=== PATIENT | female | born 1945 | race Caucasian/White ===

== ENCOUNTER 2016-03-29 11:35 | Inpatient (IN) | payer OTHER, MEDICARE ==
[~2016-03-29] VITALS: Ht 160 cm; Wt 89.0 kg
--- NOTE | 2016-03-29 12:55 | DIAGNOSTIC IMAGING REPORT ---
PROCEDURE: XR CHEST 1 VIEW INDICATION: SHORTNESS OF BREATH TECHNIQUE: Portable AP view 12:20 p.m. COMPARISON: Chest 12/14/2014 and 05/15/2009 FINDINGS: Small peripheral infiltrate right mid lung field. Heart and mediastinum are normal. Thorax is normal. IMPRESSION: 1. Small peripheral infiltrate right mid lung field.
--- NOTE | 2016-03-29 14:50 | ED ORDER SUMMARY ---
..... Patient: SUZAN CONRAD OrderSheet [facility] VisitID: [id number] [place] [address] 70y, F Registration Date/Time: 03/29/2016 ORDER SHEET Weight: 79.3 kg (stated) Allergies: No Known Drug Allergy GENERAL ORDERS: Chest 1V Urgent (12:03/29/2016 Papito VILLA) (Ack 12:12 LMuller) (12:24 KWilliams R.N.) Snuff Grinder (Continuous) (12:03/29/2016 Papito VILLA) (Ack 12:12 LMuller) (12:14 LMuller) CBC w Diff Urgent (12:03/29/2016 Papito VILLA) (Ack 12:12 LMuller) (12:24 KWilliams R.N.) CMP Urgent (12:03/29/2016 Papito VILLA) (Ack 12:12 LMuller) (12:24 KWilliams R.N.) BNP Urgent (12:03/29/2016 Papito VILLA) (Ack 12:12 LMuller) (12:24 KWilliams R.N.) Oxygen (2 L/min) (NC) (12:03/29/2016 Papito VILLA) (Ack 12:12 LMuller) (12:14 LMuller) Pulse oximeter (12:03/29/2016 Papito VILLA) (Ack 12:12 LMuller) (12:14 LMuller) EKG - ER Stat (12:03/29/2016 Papito VILLA) (Ack 12:12 LMuller) (12:14 LMuller) Rapid Influenza Screen (Nasal Pharyngeal) (swab) Urgent (14:42 03/29/2016 Papito VILLA) (Ack 14:47 NHouse ER Tech1) (14:49 NHouse ER Tech1) ABG (G) Urgent (14:42 03/29/2016 Papito VILLA) (Ack 14:47 NHouse ER Tech1) (15:30 SBalde R.N.) MEDICATION ORDERS: DuoNeb Neb Tx 1 unit dose (NOW) (14:42 03/29/2016 Papito VILLA) (Ack 14:49 NHouse ER Tech1) (16:05 Rosa) Zithromax PO 500 mg (NOW) (14:43 03/29/2016 Papito VILLA) (15:55 Cammy Reese.Sarah) IV FLUIDS: IV Saline Lock (12:11 03/29/2016 Papito VILLA) (12:24 Gali R.N.) Solu-MEDROL IV 125 mg (NOW) (12:21 03/29/2016 Papito VILLA) (12:35 Gali R.N.) Magnesium Sulfate IV 2 gm/50mL (HIGH ALERT MEDICATION, NOW) (12:21 03/29/2016 Papito VILLA) (12:37 Gali R.N.) Rocephin IV 2 gm/50mL (NOW) (14:43 03/29/2016 Papito VILLA) (15:54 Cammy Reese.Lito.) ORDER SHEET NOTES: [Electronically signed by Gwen Yancey MD (09:22 03/30/2016)] [Electronically signed by Ritika Trent R.N. (07:33 04/04/2016)] [Electronically locked/signed by Ritika Trent R.N. (07:33 04/04/2016)]
--- NOTE | 2016-03-29 14:50 | ED CLINICAL REPORT ---
Clinical Report - Physicians/Mid Levels [facility] [address] [place] [address] 03/29/2016 11:39 Patient: SUZAN CONRAD Time Seen: 12:07. Arrived- By private vehicle. Historian- patient. HISTORY OF PRESENT ILLNESS Chief Complaint: DYSPNEA and HISTORY OF CHRONIC OBSTRUCTIVE PULMONARY DISEASE. This started about 1 week ago, but worse since last night and is still present. The dyspnea is severe. The dyspnea is worsened by exertion and cough (nothing improves). The patient has had a cough, dyspnea on exertion and anxiety. No sputum production, sweating episodes, wheezing or chills. No chest pain or discomfort, calf pain, foot swelling or dizziness. No tingling, numbness or palpitations. The patient has had fever (several days ago - gone). (PT normally uses O2 at night, but has been having to use 2-3 L during the day, too, since the illness began. Pt has used multiple nebs at home, and states they are not working.). Similar symptoms previously: Many times. ( No h/o intubation or BiPAP.). Recent medical care: Not recently seen/assessed. REVIEW OF SYSTEMS The patient has had a nasal discharge but not had weight loss. No muscle aches, eye irritation, sore throat, sinus drainage or nausea. No vomiting, diarrhea, black stools, bloody stools or headache. No fainting episodes, blurred vision, difficulty with urination, skin rash or enlarged lymph nodes. No joint pain. The patient has had abdominal pain (Pt states muscles are sore from breathing heavily.). All systems otherwise negative, except as recorded above. PAST HISTORY Problems: Anxiety Reaction. Spinal Fracture. Pulmonary Embolism. COPD - Chronic Obstructive Pulmonary Disease. Additional Surgeries: Rotator Cuff Surgery. Medications: Advil Allergy & Congestion Oral. Hydrochlorothiazide Oral. Ranitidine HCl Oral. Citalopram Hydrobromide Oral. Zolpidem Tartrate Oral. ALPRAZolam Oral. Tramadol HCL Oral. PredniSONE Oral. Advair Diskus Inhalation. Albuterol Sulfate Inhalation. Allergies: No Known Drug Allergy. SOCIAL HISTORY Former smoker, end date 1996. Occasional alcohol use. No drug use. ADDITIONAL NOTES The nursing notes have been reviewed. PHYSICAL EXAM Vital Signs: 03/29/2016 11:41 BP: 126/66. HR: 103. RR: 30. O2 saturation: 75%. Temp: 99 F. Have been reviewed. Appearance: Alert. Patient in moderate distress. Distress appears respiratory. (Pt is pale, drowsy, and sits with her eyes closed, breathing through pursed lips. She does arouse easily to answer questions.). Eyes: Pupils equal, round and reactive to light. Eyes normal inspection. ENT: Nose normal. Neck: Normal inspection. CVS: Tachycardia. Heart sounds normal. Pulses normal. Respiratory: Moderate respiratory distress with accessory muscle use, anxiety, tachypnea and decreased mental status. Speaks short phrases. Fatigue. Moderately prolonged expirations. Moderately decreased air movement diffusely over both lungs. Wheezing present. No rales. Abdomen: Soft. Mild tenderness (Bilateral lateral aspects.). Back: Normal inspection. No CVA tenderness. Skin: Skin warm and dry. No rash. Normal skin turgor. Pale. Extremities: Extremities exhibit normal ROM. No lower extremity edema. Neuro: No motor deficit. No sensory deficit. (Pt answers questions appropriately.). LABS, X-RAYS, AND EKG EKG: EKG time: (1157). Rate: 100. Tachycardia. Normal P waves. Normal MARIA D. Normal QRS complex. Normal axis. Normal QT and QTc. Non-specific ST segment / T wave abnormalities. Prior EKG unavailable. The study has been interpreted contemporaneously by me. The study has been independently viewed by me. The EKG appears to be a good tracing. I agree with and confirm the computer reading of the EKG. Rhythm Strip #1: Time: (1201). Rate= 107. Sinus tachycardia. Regular rhythm. Narrow QRS complexes. No ectopy. Conduction normal. Normal ST segments and T waves. The study was interpreted by me. Chest X-ray: Small infiltrate in the right middle lobe. Consistent with pneumonia. Normal heart size. Mediastinum normal. Great vessels normal. Soft tissues normal. No fracture. No bony lesion present. Views: AP (portable). Technique: good. The X-rays were independently viewed by me, interpreted by the radiologist and contemporaneously by me and discussed with the radiologist. Prior films were not available for comparison. Laboratory Tests: CBC w Diff: (LALY: 03/29/2016 11:55) ( MsgRcvd 03/29/2016 12:20) Final results Test Result Flag Units (Reference) WHITE BLOOD COUNT 13.7 H K/uL (4.5-11.5) RED BLOOD COUNT 4.49 M/uL (4.00-5.20) HEMOGLOBIN 13.2 gm/dL (12.0-16.0) HEMATOCRIT 40.1 % (36.0-46.0) MEAN CELL VOLUME 89 fL (80-100) MEAN CORPUSCULAR HGB 30 pg (26-34) MEAN CORPUSCULAR HGB CONC 33 g/dL (31-37) RED CELL DISTRIBUTION WIDTH 13.8 % (11.6-14.8) PLATELET COUNT 301 K/uL (150-400) NEUTROPHIL % 77.7 H % (50-75) LYMPH % 10.2 L % (25-40) MONO % 11.0 % (3-14) EOSINOPHIL % 0.8 % (0-4) BASOPHIL % 0.3 % (0-2) BNP: (LALY: 03/29/2016 11:55) ( MsgRcvd 03/29/2016 12:36) Final results Test Result Flag Units (Reference) B-TYPE NATRIURETIC PEPTIDE 51.4 pg/ml (5-100) CMP: (LALY: 03/29/2016 11:55) ( MsgRcvd 03/29/2016 12:31) Final results Test Result Flag Units (Reference) GLUCOSE 116 H mg/dL (70-110) BUN 17 mg/dL (7-18) CREATININE 0.8 mg/dL (0.6-1.3) Estimated GFR >60 mL/min Estimated GFR- >60 mL/min Note: Persistent reduction over 3 months in eGFR<60 mL/min/1.73 m2 defines CKD. Patients with eGFR values>=60 mL/min/1.73 m2 may also have CKD if evidence ofpersistent proteinuria. Additional information may be foundat www.kidney.org. SODIUM 140 mmol/L (136-145) POTASSIUM 3.9 mmol/L (3.5-5.1) CHLORIDE 99 mmol/L (98-107) CARBON DIOXIDE 33 H mmol/L (21-32) CALCIUM 8.7 mg/dL (8.5-10.1) TOTAL PROTEIN 6.8 g/dL (6.4-8.2) ALBUMIN 3.0 L g/dL (3.3-5.0) BILIRUBIN, TOTAL 1.4 H mg/dL (0.0-1.0) ALKALINE PHOSPHATASE 60 U/L (46-116) AST (SGOT) 27 U/L (15-37) ALT (SGPT) 40 U/L (12-78) ABG: (LALY: 03/29/2016 14:42) ( MsgRcvd 03/29/2016 15:10) Final results Test Result Flag Units (Reference) FIO2 35 % (20-101) ABG MODE OF DELIVERY NC MODIFIED BETHANY TEST POSITIVE? YES LITERS PER MIN. 4 L/MIN (0-20) ABG TEMPERATURE 37 C ARTERIAL BLOOD GAS SITE RR ARTERIAL BLOOD GAS pH 7.34 L (7.35-7.45) ABG PCO2 61.6 *H mmHg (35-45) ABG PO2 80.4 H mmHg (60.0-80.0) ABG BASE EXCESS 6.7 H mmol/L (-6.0--6.0) ABG HCO3 33.4 *H mmol/L (20.0-26.0) ABG TCO2 35.3 *H mmol/L (24.0-30.0) ABG JjCqV5x 101.6 H mmHg (7.0-14.0) *NOTE: Normal rangeis based on aFIO2 of 21% ABG SAT O2 96.5 % (95.1-100.0) ABG TOTAL HEMOGLOBIN 12.9 g/dL (12.0-16.0) ABG O2 HEMOGLOBIN 94.8 L % (95.0-100.0) ABG CARBOXYHEMOGLOBIN 1.9 H % (0.5-1.5) ABG METHEMOGLOBIN -0.1 L % (0.4-1.5) ABG RHEMOGLOBIN 3.4 % Rapid Influenza Screen: (LALY: 03/29/2016 14:30) ( MsgRcvd 03/29/2016 15:02) Final results SPECIMEN DESCRIPTION: SWAB Test Result Flag Units (Reference) RAPID INFLUENZA SCREEN DATE: 03/29/16 INFLUENZA A: NEGATIVE SCREEN FOR INFLUENZA A INFLUENZA B: NEGATIVE SCREEN FOR INFLUENZA B . Pulse Oximetry: 03/29/2016 11:41 O2 saturation: 75%. (FIO2 - room air). Interpretation: normal. PROGRESS AND PROCEDURES Course of Care: PT was evaluated immediately upon arrival in the ED, and was placed on supplemental O2, due to her marked hypoxia. She was also immediately given a duoneb and albuterol neb. Minor improvement was noted, but pt was still in significant respiratory distress. She was also given Solumedrol and magnesium IV, and did begin to slowly improve after this. Influenza testing was negative. CXR showed a small RML infiltrate for which pt was treated with Rocephin and Zithromax. ABG showed hypercarbia without significant acidosis. PT was still found to have labored respirations after a 3rd neb, and family did not feel she was back to baseline. Pt was in agreement with the need for admission. Critical care performed (60 minutes). Time includes: direct patient care, patient reassessment, coordination of patient care, interpretation of data (laboratory data, pulse oximetry, arterial blood gases, chest xrays and cardiac output measurements), review of patient's medical records, medical consultation, family consultation regarding treatment decisions and documentation of patient care. The patient required critical care due to the acute impairment of vital organ systems (respiratory) and a high probability of imminent and life threatening deterioration. Multiple emergent and urgent interventions were required to prevent sudden life threatening deterioration. Discussed case with hospitalist, (Khris). Reviewed test results. Agreed upon treatment plan and decision to admit. Health care provider will see patient in hospital. Old medical records reviewed. Disposition: Admitted to Acute Care. Condition: serious. CLINICAL IMPRESSION Acute exacerbation of COPD. Bacterial pneumonia with hypoxemia. Vital signs recorded and reviewed; empiric antibiotics given in the ED. No respiratory failure or sepsis. (Electronically signed by Gwen Yancey MD 03/30/2016 9:22)
--- NOTE | 2016-03-29 14:50 | ED NURSING NOTES ---
Clinical Report - Nurses [facility] [address] [place] [address] 03/29/2016 11:39 Patient: SUZAN CONRAD TRIAGE Triage time 11:37. Acuity: LEVEL 2. Chief Complaint: SHORTNESS OF BREATH and DIFFICULTY BREATHING. 11:49 03/29/16. SEPSIS SCREEN: Sepsis Screen. Infection suspected/documented. Heart rate greater than 90 and respiratory rate greater than 20. Temperature not greater than 38.3 degrees C (101 degrees F). --11:49 Sandra Acevedo R.N. 11:41 03/29/16. BP: 126/66. HR: 103. RR: 30. O2 saturation: 75% on nasal cannula at 2 liters/minute. O2 started via non-rebreather at 15 liters/minute. Temp: 99 F (oral). Pain level now 8/10. Additional comments: started on NRB at 15 liters. --11:49 Sandra Acevedo R.N. Weight: 79.3 kg stated. Height/Length: 63 inches Per Patient. BMI: 31. --11:44 Sandra Acevedo R.N. Medications Albuterol Sulfate Inhalation. --11:46 Sandra Acevedo R.N. Advair Diskus Inhalation. --11:46 Sandra Acevedo R.N. PredniSONE Oral. --11:47 Sandra Acevedo R.N. Tramadol HCL Oral. --11:48 Sandra Acevedo R.N. ALPRAZolam Oral. --11:48 Sandra Acevedo R.N. Zolpidem Tartrate Oral. --11:48 Sandra Acevedo R.N. Citalopram Hydrobromide Oral. --11:48 Sandra Acevedo R.N. Ranitidine HCl Oral. --11:48 Sandra Acevedo R.N. Hydrochlorothiazide Oral. --11:48 Sandra Acevedo R.N. Advil Allergy & Congestion Oral. --11:48 Sandra Acevedo R.N. Allergies No Known Drug Allergy. --11:47 Sandra Acevedo R.N. History Primary physician (LALY). ( SOB x2 days, states cough became productive today with yellow/cedillo sputum. Regularly on home oxygen at night only, states she has been wearing 2-3 liters in the daytime as well for the past couple days.). Onset. (2 days ago). Treatment CUSTOMER EXPERIENCE STRATEGIST: None. SOCIAL HX: Former smoker, end date 1996. Occasional alcohol use. No drug use. FALL RISK ASSESSMENT: Fall risk assessment completed. No fall risk identified. NUTRITIONAL RISK ASSESSMENT: The nutritional risk assessment revealed no deficiencies. FUNCTIONAL ASSESSMENT: Functional assessment: no impairments noted. LEARNING NEEDS ASSESSMENT: The learning needs assessment revealed no barriers. SKIN INTEGRITY ASSESSMENT: Skin integrity risk assessment completed. No skin integrity risk identified. --11:49 Sandra Acevedo R.N. PROBLEMS: Anxiety Reaction. Chest Pain. Spinal Fracture. Pulmonary Embolism. COPD - Chronic Obstructive Pulmonary Disease. --11:47 Sandra Acevedo R.N. ADDITIONAL SURGERIES: Rotator Cuff Surgery. --11:47 Sandra Acevedo R.N. Interventions ID band on patient. To treatment room. --11:49 Sandra Acevedo R.N. PHYSICAL ASSESSMENT To room via wheelchair. GENERAL / NEURO / PSYCH: Alert. Oriented X 4. Appears anxious. HEENT: Mucous membranes are pink. RESPIRATORY: Moderate respiratory distress. The patient can speak a few words at a time. ( RT to bedside at triage). CVS: Capillary refill less than 2 seconds. GI / : Abdomen soft and nontender. SKIN: Skin is warm and dry. Normal skin turgor. --12:04 Sandra Acevedo R.N. NURSING PROGRESS NOTES 11:49 03/29/16. --11:49 Sandra Acevedo R.N. 11:49 03/29/16. O2 saturation: 100% on non-rebreather at 15 liters/minute. --11:49 Sandra Acevedo R.N. 11:53 03/29/2016 Site #1 started via IV in the right antecubital space with an 18g angiocath, with aseptic technique and good blood return; one attempt. Blood drawn: rainbow set. Labeled in the presence of the patient and sent to the lab. Saline lock flushed with 10 mL saline. --12:03 Sandra Acevedo R.N. EKG time: (1157). EKG was performed by a tech. --12:04 Sandra Acevedo R.N. 12:30 03/29/2016 SOLU-MEDROL (MethylPREDNISolone Sodium Succ) IVP 125 mg given over 2 minute(s) via site #1. Allergies verified and confirmed 5 rights. IV patency established. IV site checked: no pain, redness, or swelling. IV flushed thoroughly pre- and post-medication administration. IVP given by RN. --12:35 Sandra Acevedo R.N. 12:32 03/29/2016 Magnesium Sulfate (Magnesium Sulfate in D5W) IVP 2 gm given over 2 hour(s) via site #1. Allergies verified and confirmed 5 rights. IV patency established. IV site checked: no pain, redness, or swelling. IV flushed thoroughly pre- and post-medication administration. IVP given by RN (25ml/hour). --12:37 Sandra Acevedo R.N. 12:38 03/29/16. BP: 139/71. HR: 100. RR: 28. O2 saturation: 97% on nasal cannula at 4 liters/minute. --12:38 Sandra Acevedo R.N. 12:47 03/29/16. BP: 129/54. HR: 106. RR: 26. O2 saturation: 95% on nasal cannula at 4 liters/minute. --12:48 Sandra Acevedo R.N. Cardiac rhythm: sinus tachycardia. --12:48 Sandra Acevedo R.N. 13:17 03/29/16. Reassessment after medication administered. She reports no complaints, she is calm and resting quietly and she has had no adverse reaction. Overall patient status is improved- she states feels better. --13:17 Sandra Acevedo R.N. Care transferred and report given (NAVIN Yost). --13:36 Ritika Trent R.N. 13:41 03/29/16. Care transferred and report given (DUSTIN Yost). --13:41 Sandar Acevedo R.N. 14:18 03/29/2016 Magnesium Sulfate IVP Response: no adverse reaction (infusion complete, 50 ml total.). --14:18 Ritika Trent R.N. Patient ID band checked. Flu swab obtained by RN via nasal swab. Labeled in the presence of the patient and sent to lab. --14:45 Ritika Trent R.N. 14:56 03/29/16. BP: 136/60. HR: 90. RR: 20. O2 saturation: 95%. Temp: 97.9 F. --14:57 Damaris Hong, ER Tech1 ( Most recent vitals taken while patient on oxygen 4 LPM nasal cannula). --14:58 Damaris Hong, ER Tech1 15:20 03/29/2016 Started 2 gm of Rocephin (CefTRIAXone Sodium) IVPB in bag #1 50 mL; at 100 mL/hr over 30 minute(s) via site #1; IV patency established. IV site checked: no pain, redness, or swelling. IV flushed thoroughly pre- and post-medication administration. Completed per protocol. --15:54 Ritika Trent R.N. 15:55 03/29/16. BP: 126/59. HR: 92. RR: 20. O2 saturation: 90%. Pain level now 0/10. --15:56 Ritika Trent R.N. 15:40 03/29/2016 Duoneb (Ipratropium-Albuterol) Neb TX Nebulizer 1 unit dose given. Given by the respiratory therapist. Allergies verified and confirmed 5 rights. --16:05 Aristides Dimas 15:55 03/29/2016 Zithromax PO 500 mg given. Allergies verified and confirmed 5 rights. --15:55 Ritika Trent R.N. ( Family assisting pt to the bathroom.). --16:08 Ritika Trent R.N. Assisted patient to bedside commode. --16:15 Sandra Acevedo R.N. DISPOSITION / DISCHARGE Admitted to Acute Care. Report was given to a nurse. Report included patient's care, treatment, medications, reviewed medication reconcilliation, and condition (including any recent changes or anticipated changes). All questions were answered. Report was acknowledged. (NAVIN Sandoval). Patient's personal items include, with pt. --16:23 Ritika Trent R.N. ( pt is on 3 liters at this time.). --16:27 Ritika Trent R.N. 16:27 03/29/16. BP: 126/59. HR: 90. RR: 20. O2 saturation: 90%. Pain level now 0/10. --16:27 Ritika Trent R.N. Locked/Released at 04/04/2016 7:33 by Ritika Trent R.N.
--- NOTE | 2016-03-29 14:50 | ED ORDER SUMMARY ---
..... Patient: SUZAN CONRAD OrderSheet [facility] VisitID: [id number] [place] [address] 70y, F Registration Date/Time: 03/29/2016 ORDER SHEET Weight: 79.3 kg (stated) Allergies: No Known Drug Allergy GENERAL ORDERS: Chest 1V Urgent (12:03/29/2016 Papito VILLA) (Ack 12:12 LMuller) (12:24 KWilliams R.N.) Web Operations Lead (Continuous) (12:03/29/2016 Papito VILLA) (Ack 12:12 LMuller) (12:14 LMuller) CBC w Diff Urgent (12:03/29/2016 Papito VILLA) (Ack 12:12 LMuller) (12:24 KWilliams R.N.) CMP Urgent (12:03/29/2016 Papito VILLA) (Ack 12:12 LMuller) (12:24 KWilliams R.N.) BNP Urgent (12:03/29/2016 Papito VILLA) (Ack 12:12 LMuller) (12:24 KWilliams R.N.) Oxygen (2 L/min) (NC) (12:03/29/2016 Papito VILLA) (Ack 12:12 LMuller) (12:14 LMuller) Pulse oximeter (12:03/29/2016 Papito VILLA) (Ack 12:12 LMuller) (12:14 LMuller) EKG - ER Stat (12:03/29/2016 Papito VILLA) (Ack 12:12 LMuller) (12:14 LMuller) Rapid Influenza Screen (Nasal Pharyngeal) (swab) Urgent (14:42 03/29/2016 Papito VILLA) (Ack 14:47 NHouse ER Tech1) (14:49 NHouse ER Tech1) ABG (G) Urgent (14:42 03/29/2016 Papito VILLA) (Ack 14:47 NHouse ER Tech1) (15:30 SBalde R.N.) MEDICATION ORDERS: DuoNeb Neb Tx 1 unit dose (NOW) (14:42 03/29/2016 Papito VILLA) (Ack 14:49 NHouse ER Tech1) (16:05 Rosa) Zithromax PO 500 mg (NOW) (14:43 03/29/2016 Papito VILLA) (15:55 Cammy Reese.Sarah) IV FLUIDS: IV Saline Lock (12:11 03/29/2016 Papito VILLA) (12:24 Gali R.N.) Solu-MEDROL IV 125 mg (NOW) (12:21 03/29/2016 Papito VILLA) (12:35 Gali R.N.) Magnesium Sulfate IV 2 gm/50mL (HIGH ALERT MEDICATION, NOW) (12:21 03/29/2016 Papito VILLA) (12:37 Gali R.N.) Rocephin IV 2 gm/50mL (NOW) (14:43 03/29/2016 Papito VILLA) (15:54 Cammy Reese.Lito.) ORDER SHEET NOTES: [Electronically signed by Gwen Yancey MD (09:22 03/30/2016)] [Electronically signed by Ritika Trent R.N. (07:33 04/04/2016)] [Electronically locked/signed by Ritika Trent R.N. (07:33 04/04/2016)]
[2016-03-29 15:17] VITALS: BP 136/60
--- NOTE | 2016-03-29 15:48 | Progress Note ---
Subjective General Admission History and Physical Examination Patient Name: Kim Wilson Admission Date: March 29, 2016 Primary Care Provider: [PCP] Attending Physician: Dwight Pinedo M.D. Admitting Physician: Dwight Pinedo M.D. SUBJECTIVE Historian: Patient Reliability: Fair Chief Complaint: Shortness of breath History of Present Illness: The patient is a 70-year-old white female with a significant past medical history of COPD-O2 dependent, hypertension, who presented to [facility] emergency department on the day of admission secondary to complaints of shortness of breath. [facility] emergency room evaluation was consistent with exacerbation of COPD. Secondary to the above, the patient was admitted by Dwight Pinedo M.D. for further evaluation and treatment. PAST MEDICAL HISTORY Illnesses: 1. COPD-O2 dependent 2. Hypertension 3. Generalized anxiety disorder 4. Insomnia 5. Gastroesophageal reflux 6. Chronic back/rib pain 7. History of pulmonary embolism Allergies: 1. No Known Drug Allergies Medications: 1. Xanax 0.5 mg by mouth twice a day 2. Prednisone 20 mg by mouth daily 3. Albuterol 2.5 mg by mouth 4 times a day 4. Advair Diskus 250/50 one inhalation twice a day 5. Tramadol 50 mg by mouth twice a day when necessary pain 6. Ambien 10 mg by mouth daily at bedtime 7. Citalopram 10 mg by mouth daily 8. Zantac 150 mg by mouth twice a day Surgery: 1. Shoulder surgery 2 2. Hysterectomy Injuries: 1. Vertebral fracture Hospitalizations: 1. For above surgery and medical problems FAMILY HISTORY Parents: 1. Father, Pacheco, , 72, CVA, 2. Mother, Vida, , 69, CHF Siblings: 1. Female, Latoya, living, 68, healthy Children: 1. Male, Pacheco, living, 48, healthy 2. Female, Francoise, living, 46, healthy Other significant family history: None SOCIAL HISTORY 1. Marital Status: 2. Roman Catholic: None 3. Education: High school, 12th grade 4. Employment History: Retired, worked in [employer] 33 years 5. Occupational health exposures: None HABITS 1. Tobacco: 20 pack years, stopped 20 years prior to admission 2. Drugs: None 3. Alcohol: 8 ounces per month 4. Caffeine: 3-5 cups per day HEALTH SUPERVISION Item/Test 1. Vision screen: 2015 2. Cholesterol Profile: 2015 3. PSA: Not applicable 4. CHASTITY: Not applicable 5. FOBT: 2015 6. Blood Glucose: 2015 7. Colonoscopy: 2013 8. History and physical exam: 2015 9. Audiogram: 1989 IMMUNIZATIONS: 1. Pneumococcal: Unknown 2. Influenza: Unknown 3. Tetanus: Unknown REVIEW OF SYSTEMS Remarkable for those things stated in the history of present illness and past medical history. Seventeen point review of system completed with the following notable findings: [ROS] Physical Exam Vital Signs / I&Os Vital Signs Date Time Temp Pulse Resp B/P Pulse O2 O2 Flow FiO2 Ox Delivery Rate 03/29 1720 97.9 91 24 132/78 95 Nasal 3.0 Cannula 03/29 1713 Nasal 3.0 Cannula 03/29 1517 97.9 90 20 136/60 95 Nasal 4.0 Cannula 03/29 1501 4.0 03/29 1150 15.0 General Appearance Alert, Oriented X3, Cooperative, Mild distress HEENT Atraumatic, PERRLA, EOMI, Moist mucous membranes Lungs Decreased air movement bilaterally, bilateral expiratory wheezes Neck Supple, No JVD Cardiovascular Regular rate and rhythm, Normal S1 and S2, No murmurs, gallops, rubs, heart tones distant Abdomen Normal bowel sounds, Soft, No tenderness, No guarding Extremities No cyanosis, No clubbing, No edema Neurological Cranial nerves intact, Strength 5/5 x4 ext's, No lateralizing signs Psych/Mental Status Mental status normal, Mood normal LAB Results Laboratory Tests 03/29 03/29 03/29 03/29 1442 1155 1155 1155 Blood Gas Sample Site RR Total CO2 (24.0 - 30.0 mmol/L) 35.3 ABG pH (7.35 - 7.45) 7.34 ABG pCO2 at Pt Temp (35 - 45 mmHg) 61.6 ABG pO2 at Pt Temp (60.0 - 80.0 mmHg) 80.4 ABG HCO3 (20.0 - 26.0 mmol/L) 33.4 ABG O2 Sat Calc/Pilar (95.1 - 100.0 %) 96.5 ABG Base Excess (-6.0 - -6.0 mmol/L) 6.7 ABG Reduced Hgb (%) 3.4 ABG Carboxyhemoglobin (0.5 - 1.5 %) 1.9 ABG Methemoglobin (0.4 - 1.5 %) -0.1 Derik Test YES Other Total Hgb (12.0 - 16.0 g/dL) 12.9 A-a O2 Gradient (7.0 - 14.0 mmHg) 101.6 Hgb O2 Saturation (95.0 - 100.0 %) 94.8 Temperature (C) 37 O2 Liters/Min (0 - 20 L/MIN) 4 Vent Mode NC FiO2 (20 - 101 %) 35 Chemistry Plasma Sodium (136 - 145 mmol/L) 140 Plasma Potassium (3.5 - 5.1 mmol/L) 3.9 Plasma Chloride (98 - 107 mmol/L) 99 CO2 (Enzymatic) (21 - 32 mmol/L) 33 BUN (7 - 18 mg/dL) 17 Creatinine (0.6 - 1.3 mg/dL) 0.8 Est GFR ( Amer) (mL/min) >60 Est GFR (Non-Af Amer) (mL/min) >60 Glucose (70 - 110 mg/dL) 116 Plasma Calcium (8.5 - 10.1 mg/dL) 8.7 Total Bilirubin (0.0 - 1.0 mg/dL) 1.4 AST (15 - 37 U/L) 27 ALT (12 - 78 U/L) 40 Alkaline Phosphatase (46 - 116 U/L) 60 B-Natriuretic Peptide (5 - 100 pg/ml) 51.4 Total Protein (6.4 - 8.2 g/dL) 6.8 Albumin (3.3 - 5.0 g/dL) 3.0 Procalcitonin (0 - 0.5 ng/mL) <0.5 Hematology WBC (4.5 - 11.5 K/uL) 13.7 RBC (4.00 - 5.20 M/uL) 4.49 Hgb (12.0 - 16.0 gm/dL) 13.2 Hct (36.0 - 46.0 %) 40.1 MCV (80 - 100 fL) 89 MCH (26 - 34 pg) 30 RDW (11.6 - 14.8 %) 13.8 Neut % (Auto) (50 - 75 %) 77.7 Lymph % (Auto) (25 - 40 %) 10.2 [place] % (Auto) (3 - 14 %) 11.0 Eos % (Auto) (0 - 4 %) 0.8 Baso % (Auto) (0 - 2 %) 0.3 Plt Count, EDTA (150 - 400 K/uL) 301 PUBS MCHC (31 - 37 g/dL) 33 Microbiology Date/Time Procedure - Status Source Growth 03/29 1430 Influenza Screen - COMP NASALPHAR Imaging Chest X-Ray IMPRESSION: 1. Small peripheral infiltrate right mid lung field. Dictated by: EDMOND AGUIAR MD D: JENNIFER;03/29/16 1255 Assessment and Plan Problem List 1. COPD exacerbation Status Chronic Onset Date Unknown Plan -Patient presents with findings of exacerbation of COPD -DuoNeb, albuterol, IV corticosteroids, supplemental oxygen -Check arterial blood gas -Magnesium administered in the emergency department -Monitor 2. Pneumonia Status Acute Onset Date Unknown Plan -Patient shows small infiltrate chest x-ray -Check Procalcitonin -Rocephin/Zithromax -Consider switch to oral meds in a.m. if WBC, Procalcitonin unremarkable -Monitor 3. Gastroesophageal reflux Status Chronic Onset Date Unknown Plan -Patient with long-standing history of gastroesophageal reflux -Protonix 40 mg by mouth daily -Asymptomatic at this time -Monitor 4. Insomnia Status Chronic Onset Date Unknown Plan -Patient with long-standing history of insomnia -Continue Ambien 10 mg by mouth daily at bedtime -Monitor 5. Anxiety Status Chronic Onset Date Unknown Plan -Patient with history of generalized anxiety disorder -Ativan when necessary -Monitor Current status: Fair, improved since presentation to emergency department Anticipated discharge date: Anticipated discharge in 1-2 days Anticipated discharge placement: Home Patient care time: Time spent in chart review, patient interview, physical exam, CPOE, and care documentation: 70 minutes Visit to patient today: Complexity of care: High E&M Codes Admission: Inpt-High/81098
[2016-03-29 17:20] VITALS: BP 132/78
[2016-03-29] MEDS ORDERED: PREDNISONE10 MG PO (17:33)
[2016-03-29] MEDS ORDERED: TRAMADOL HCL50 MG PO (17:34)
[2016-03-29] MEDS ORDERED: CITALOPRAM HYDR20 MG PO (17:35)
[2016-03-29] MEDS ORDERED: ALPRAZOLAM0.5 MG PO (17:35)
[2016-03-29] MEDS ORDERED: AMBIEN10 MG PO (17:35)
[2016-03-29] MEDS ORDERED: HEARTBURN RELI150 MG PO (17:36)
[2016-03-29] MEDS ORDERED: [UNRECOGNIZED DRUG - OTHER] (17:38)
[2016-03-29] MEDS ORDERED: O2 (17:38)
[2016-03-29] MEDS ORDERED: ADVIL COLD (17:38)
[2016-03-29] MEDS ORDERED: VENTOLIN HFA IN (17:39)
[2016-03-29] MEDS ORDERED: ADVAIR DISKU1 INH (17:41)
[2016-03-29] MEDS ORDERED: ALBUTEROL SULFAT2 MG IN (17:41)
[2016-03-29 18:35] VITALS: BP 132/66
[2016-03-29 22:57] VITALS: BP 137/79
[2016-03-30 02:33] VITALS: BP 136/76
[2016-03-30] MEDS ORDERED: VITAMIN D-31000 UNIT PO (05:27)
[2016-03-30] MEDS ORDERED: CALCIUM CARBON500 MG PO (05:28)
[2016-03-30 06:50] VITALS: BP 135/79
--- NOTE | 2016-03-30 07:32 | Progress Note ---
Subjective General Note Date: March 30, 2016 Admission Date: March 29, 2016 Hospital Day: 2 PCP: Dr. Santos Status: Inpatient Advanced Directive: FULL CODE Room: 208 Brief History: The patient is a 70-year-old white female with a significant past medical history of COPD-O2 dependent, hypertension, who presented to [facility] emergency department on the day of admission secondary to complaints of shortness of breath. [facility] emergency room evaluation was consistent with exacerbation of COPD. Secondary to the above, the patient was admitted by Dwight Pinedo M.D. for further evaluation and treatment. For other history present illness, past medical history, family history, social history, review of systems, and admission physical examination please see the patient's history and physical examination and ER visit note in the patient's medical record. Subjective: The patient states she is doing much better today. Persistent shortness of breath but improved. Approximately 30% better than admission. No specific requests Patient requests: None Medications and Allergies Medications Current Medications Sig/Meenu Start time Last Medication Dose Route Stop Time Status Admin Azithromycin 500 MG DAILY 03/30 899 AC Sodium Chloride 250 ML IV 03/31 1000 Ceftriaxone Sodium/ 50 ML DAILY 03/30 09 AC Dextrose IV Citalopram 10 MG DAILY 03/30 09 AC Hydrobromide PO Methylprednisolone 40 MG Q8HR 03/29 2200 AC 03/30 Sodium Succinate IV 0524 Albuterol/Ipratropium 3 ML RTQ6H 03/29 1999 AC 03/30 IN 0224 Fluticasone/ See Dose RTBID 03/29 1999 AC Salmeterol Insts (1) IN Alprazolam 0.5 MG Q8H PRN 03/29 1745 AC PO Tramadol HCl 50 MG Q6H PRN 03/29 1745 AC 03/30 PO 0247 Zolpidem Tartrate 10 MG QHS PRN 03/29 1745 AC 03/29 PO 2139 Acetaminophen 650 MG Q6H PRN 03/29 1700 AC PO Albuterol Sulfate 2.5 MG RTQ3H PRN 03/29 1700 AC IN Enoxaparin Sodium 40 MG DAILY 03/29 1700 AC 03/29 SC 1806 Nitroglycerin 0.4 MG Q5M PRN 03/29 1700 AC SL Ondansetron HCl 4 MG Q6H PRN 03/29 170 AC IV Pantoprazole Sodium 40 MG DAILY@0600 03/29 1700 AC 03/30 Sesquihydrate PO 0524 Sodium Chloride 1,000 ML ASDIRECTED 03/29 1700 AC IV Sodium Chloride 1,000 ML ASDIRECTED 03/29 1600 AC 03/30 IV 0402 Dose Instructions: (1)Fluticasone/Salmeterol: 1 CLICK Allergies Coded Allergies: TAPE - PLASTIC (03/29/16) Physical Exam Vital Signs / I&Os Vital Signs Date Time Temp Pulse Resp B/P Pulse O2 O2 Flow FiO2 Ox Delivery Rate 03/30 0715 2.0 03/30 0650 98.4 87 22 135/79 97 Nasal 2.0 Cannula 03/30 0254 20 93 Nasal 2.0 Cannula 03/30 0233 98.1 89 18 136/76 100 Nasal 2.0 Cannula 03/30 0230 97 Nasal 3.0 Cannula 03/30 0225 2.0 03/30 0032 Nasal 3.0 Cannula 03/29 2257 98.1 88 18 137/79 95 Nasal 3.0 Cannula 03/29 2115 3.0 03/29 2030 Nasal 3.0 Cannula 03/29 1835 98.8 92 24 132/66 91 Nasal 3.0 Cannula 03/29 1720 97.9 91 24 132/78 95 Nasal 3.0 Cannula 03/29 1713 Nasal 3.0 Cannula 03/29 1517 97.9 90 20 136/60 95 Nasal 4.0 Cannula 03/29 1501 4.0 03/29 1150 15.0 I&O 03/30 0000 03/29 1600 03/29 0800 Intake Total 360 Output Total 512 Balance -152 General Appearance Alert, Oriented X3, Cooperative, No acute distress Lungs Decreased breath sounds bilaterally with slightly increased air movement bilaterally compared to admission. Persistent bilateral expiratory wheezes Cardiovascular Regular rate and rhythm, Normal S1 and S2 Abdomen Normal bowel sounds, Soft, No tenderness Extremities No cyanosis, No clubbing Neurological Grossly normal Psych/Mental Status Mental status normal, Mood normal LAB Results Laboratory Tests 03/30 03/29 03/29 03/29 03/29 0525 1442 1155 1155 1155 Blood Gas Sample Site RR Total CO2 (24.0 - 30.0 mmol/L) 35.3 ABG pH (7.35 - 7.45) 7.34 ABG pCO2 at Pt Temp (35 - 45 mmHg) 61.6 ABG pO2 at Pt Temp (60.0 - 80.0 mmHg) 80.4 ABG HCO3 (20.0 - 26.0 mmol/L) 33.4 ABG O2 Sat Calc/Pilar (95.1 - 100.0 %) 96.5 ABG Base Excess (-6.0 - -6.0 mmol/L) 6.7 ABG Reduced Hgb (%) 3.4 ABG Carboxyhemoglobin (0.5 - 1.5 %) 1.9 ABG Methemoglobin (0.4 - 1.5 %) -0.1 Derik Test YES Other Total Hgb (12.0 - 16.0 g/dL) 12.9 A-a O2 Gradient (7.0 - 14.0 mmHg) 101.6 Hgb O2 Saturation (95.0 - 100.0 %) 94.8 Temperature (C) 37 O2 Liters/Min (0 - 20 L/MIN) 4 Vent Mode NC FiO2 (20 - 101 %) 35 Chemistry Plasma Sodium (136 - 145 mmol/L) 145 140 Plasma Potassium (3.5 - 5.1 mmol/L) 4.5 3.9 Plasma Chloride (98 - 107 mmol/L) 104 99 CO2 (Enzymatic) (21 - 32 mmol/L) 33 33 BUN (7 - 18 mg/dL) 13 17 Creatinine (0.6 - 1.3 mg/dL) 0.7 0.8 Est GFR ( Amer) (mL/min) >60 >60 Est GFR (Non-Af Amer) (mL/min) >60 >60 Glucose (70 - 110 mg/dL) 163 116 Plasma Calcium (8.5 - 10.1 mg/dL) 8.6 8.7 Plasma Magnesium (1.8 - 2.4 mg/dL) 2.3 Total Bilirubin (0.0 - 1.0 mg/dL) 1.4 AST (15 - 37 U/L) 27 ALT (12 - 78 U/L) 40 Alkaline Phosphatase (46 - 116 U/L) 60 B-Natriuretic Peptide (5 - 100 pg/ml) 51.4 Total Protein (6.4 - 8.2 g/dL) 6.8 Albumin (3.3 - 5.0 g/dL) 3.0 Procalcitonin (0 - 0.5 ng/mL) <0.5 Hematology WBC (4.5 - 11.5 K/uL) 13.7 RBC (4.00 - 5.20 M/uL) 4.49 Hgb (12.0 - 16.0 gm/dL) 13.2 Hct (36.0 - 46.0 %) 40.1 MCV (80 - 100 fL) 89 MCH (26 - 34 pg) 30 RDW (11.6 - 14.8 %) 13.8 Neut % (Auto) (50 - 75 %) 77.7 Lymph % (Auto) (25 - 40 %) 10.2 [place] % (Auto) (3 - 14 %) 11.0 Eos % (Auto) (0 - 4 %) 0.8 Baso % (Auto) (0 - 2 %) 0.3 Plt Count, EDTA (150 - 400 K/uL) 301 PUBS MCHC (31 - 37 g/dL) 33 Microbiology Date/Time Procedure - Status Source Growth 03/29 1430 Influenza Screen - COMP NASALPHAR Assessment and Plan Problem List 1. COPD exacerbation Status Chronic Onset Date Unknown Plan -Status improved. -Continue DuoNeb, albuterol, IV corticosteroids and supplemental oxygen -O2 requirement has decreased currently at 2 L/m nasal cannula -Monitor 2. Pneumonia Status Acute Onset Date Unknown Plan -Stable -Afebrile -Continue present therapy -Check CBC with manual differential, Procalcitonin in a.m. if stable change to oral antimicrobials 3. Anxiety Status Chronic Onset Date Unknown Plan -Patient with significant anxiety -Continue Xanax 0.25 mg by mouth 3 times a day when necessary anxiety -Monitor 4. Gastroesophageal reflux Status Chronic Onset Date Unknown Plan -Not problematic -Continue present therapy 5. Insomnia Status Chronic Onset Date Unknown Plan -Not problematic -Continue Bolaien Current status: Fair, improved Anticipated discharge date: Anticipated discharge in 1-2 days Anticipated discharge placement: Home Patient care time: Time spent in chart review, patient interview, physical exam, CPOE, and care documentation: 25 minutes Visit to patient today: 1 Complexity of care: Moderate E&M Codes Rounding: Inpt-Moderate/[id number]
[2016-03-30 10:56] VITALS: BP 138/80
[2016-03-30 14:54] VITALS: BP 128/65
[2016-03-30 18:17] VITALS: BP 131/76
[2016-03-30 22:40] VITALS: BP 144/69
[2016-03-31 02:11] VITALS: BP 114/58
[2016-03-31 06:31] VITALS: BP 138/79
--- NOTE | 2016-03-31 07:38 | Progress Note ---
Subjective General Note Date: March 31, 2016 Admission Date: March 29, 2016 Hospital Day: 3 PCP: Dr. Santos Status: Inpatient Advanced Directive: FULL CODE Room: 208 Brief History: The patient is a 70-year-old white female with a significant past medical history of COPD-O2 dependent, hypertension, who presented to [facility] emergency department on the day of admission secondary to complaints of shortness of breath. [facility] emergency room evaluation was consistent with exacerbation of COPD. Secondary to the above, the patient was admitted by Dwight Pinedo M.D. for further evaluation and treatment. For other history present illness, past medical history, family history, social history, review of systems, and admission physical examination please see the patient's history and physical examination and ER visit note in the patient's medical record. Subjective: The patient states she is doing somewhat better today. Persistent shortness of breath but improved. Remains very anxious. Wishes improved anxiety control. No specific requests Patient requests: Improved anxiety control Medications and Allergies Medications Current Medications Sig/Meenu Start time Last Medication Dose Route Stop Time Status Admin Alprazolam 0.5 MG TID PRN 03/30 1730 AC 03/31 PO 0601 Azithromycin 500 MG DAILY 03/30 09 AC 03/30 Sodium Chloride 250 ML IV 03/31 1000 0919 Ceftriaxone Sodium/ 50 ML DAILY 03/30 09 AC 03/30 Dextrose IV 0821 Citalopram 10 MG DAILY 03/30 0900 AC 03/30 Hydrobromide PO 0821 Methylprednisolone 40 MG Q8HR 03/29 2200 AC 03/31 Sodium Succinate IV 0601 Albuterol/Ipratropium 3 ML RTQ6H 03/29 1999 AC 03/31 IN 0158 Fluticasone/ See Dose RTBID 03/29 1999 AC Salmeterol Insts (1) IN Tramadol HCl 50 MG Q6H PRN 03/29 1745 AC 03/30 PO 2356 Zolpidem Tartrate 10 MG QHS PRN 03/29 1745 AC 03/30 PO 1938 Acetaminophen 650 MG Q6H PRN 03/29 1700 AC PO Albuterol Sulfate 2.5 MG RTQ3H PRN 03/29 1700 AC 03/31 IN 0552 Enoxaparin Sodium 40 MG DAILY 03/29 1700 AC 03/30 SC 0821 Nitroglycerin 0.4 MG Q5M PRN 03/29 1700 AC SL Ondansetron HCl 4 MG Q6H PRN 03/29 170 AC IV Pantoprazole Sodium 40 MG DAILY@0600 03/29 170 AC 03/31 Sesquihydrate PO 0601 Sodium Chloride 1,000 ML ASDIRECTED 03/29 1699 AC 03/31 IV 0053 Dose Instructions: (1)Fluticasone/Salmeterol: 1 CLICK Allergies Coded Allergies: TAPE - PLASTIC (03/29/16) Physical Exam Vital Signs / I&Os Vital Signs Date Time Temp Pulse Resp B/P Pulse O2 O2 Flow FiO2 Ox Delivery Rate 03/31 630 98.1 96 22 138/79 92 Nasal 2.0 Cannula 03/31 0553 2.0 03/31 0211 98.1 67 16 114/58 93 Nasal 2.0 Cannula 03/31 0159 2.0 03/31 0011 2.0 03/30 2240 98.6 93 18 144/69 94 Nasal 2.0 Cannula 03/30 2047 2.0 03/30 2016 Nasal 2.0 Cannula 03/30 1817 98.4 98 20 131/76 96 Nasal 2.0 Cannula 03/30 1520 2.0 03/30 1454 97.9 98 22 128/65 97 Nasal 2.0 Cannula 03/30 1411 2.0 03/30 1056 97.9 91 22 138/80 97 Nasal 2.0 Cannula 03/30 0904 2.0 I&O 03/31 0000 03/30 1600 03/30 0800 Intake Total 600 2171 1175 Output Total 600 588 700 Balance 0 1583 475 General Appearance Alert, Oriented X3, Cooperative, No acute distress Lungs decreased air movement bilaterally unchanged. Diffuse expiratory wheezes mild Cardiovascular Regular rate and rhythm, Normal S1 and S2 Abdomen Normal bowel sounds, Soft, No tenderness Extremities No cyanosis, No clubbing, No edema Neurological grossly normal Psych/Mental Status Mental status normal, Mood normal, anxious LAB Results Laboratory Tests 03/31 528 Chemistry Plasma Sodium (136 - 145 mmol/L) 145 Plasma Potassium (3.5 - 5.1 mmol/L) 4.8 Plasma Chloride (98 - 107 mmol/L) 107 CO2 (Enzymatic) (21 - 32 mmol/L) 31 BUN (7 - 18 mg/dL) 15 Creatinine (0.6 - 1.3 mg/dL) 0.7 Est GFR ( Amer) (mL/min) >60 Est GFR (Non-Af Amer) (mL/min) >60 Glucose (70 - 110 mg/dL) 147 Plasma Calcium (8.5 - 10.1 mg/dL) 8.5 Hematology WBC (4.5 - 11.5 K/uL) 18.2 RBC (4.00 - 5.20 M/uL) 4.26 Hgb (12.0 - 16.0 gm/dL) 12.4 Hct (36.0 - 46.0 %) 38.1 MCV (80 - 100 fL) 90 MCH (26 - 34 pg) 29 RDW (11.6 - 14.8 %) 13.8 Neut % (Auto) (50 - 75 %) 90 Lymph % (Auto) (25 - 40 %) 4 [place] % (Auto) (3 - 14 %) 3 Eos % (Auto) (0 - 4 %) 0 Baso % (Auto) (0 - 2 %) 0 Band Neutrophils % (0 - 8 %) 3 Metamyelocytes % (0 - 1 %) 0 Myelocytes (0 - 1 %) 0 Other Cell Type 0 Plt Count, EDTA (150 - 400 K/uL) 362 PUBS MCHC (31 - 37 g/dL) 33 Assessment and Plan Problem List 1. COPD exacerbation Status Chronic Onset Date Unknown Plan -Patient status slowly improving. -O2 requirement stable -Continue DuoNeb, albuterol, switch to oral corticosteroids -ABG improved compared to admission with decreased CO2 retention -ABG pH 7.35, PCO2 54.2, PO2 84.1 -Monitor -Possible discharge in 24 hours with improved status 2. Pneumonia Status Acute Onset Date Unknown Plan -Patient with improved status -Afebrile -Persistent leukocytosis but patient on high-dose corticosteroids -Procalcitonin within normal limits -Switch to oral antimicrobials-Ceftin 500 mg by mouth twice a day 3. Anxiety Status Chronic Onset Date Unknown Plan -Patient with high degree of anxiety -Continue citalopram and Xanax -Increase Xanax to 0.25 mg by mouth every 6 hours when necessary for anxiety -Monitor 4. Gastroesophageal reflux Status Chronic Onset Date Unknown Plan -Stable -Asymptomatic -Continue Protonix 40 mg by mouth daily. 5. Insomnia Status Chronic Onset Date Unknown Plan -Stable -Continue Ambien Current status: Fair, improved Anticipated discharge date: Anticipated discharge in a.m. Anticipated discharge placement: Home Patient care time: Time spent in chart review, patient interview, physical exam, CPOE, and care documentation: 25 minutes Visit to patient today: 1 Complexity of care: Moderate E&M Codes Rounding: Inpt-Moderate/08495
[2016-03-31 10:52] VITALS: BP 147/78
[2016-03-31 14:38] VITALS: BP 150/70
[2016-03-31 18:27] VITALS: BP 152/93
[2016-03-31 22:43] VITALS: BP 167/82
[2016-04-01 01:56] VITALS: BP 163/81
[2016-04-01 07:09] VITALS: BP 145/77
--- NOTE | 2016-04-01 07:57 | Discharge Summary ---
Discharge Summary Report Admit Date 03/29/16 Discharge Date 04/01/16 Admission Diagnosis E&M Codes Discharge: Inpt >30 min spent/56214 Discharge Diagnosis 1. Exacerbation of COPD 2. Pneumonia 3. Generalized anxiety disorder 4. Gastroesophageal reflux 5. Insomnia Brief History The patient is a 70-year-old white female with a significant past medical history of COPD-O2 dependent, hypertension, who presented to [facility] emergency department on the day of admission secondary to complaints of shortness of breath. [facility] emergency room evaluation was consistent with exacerbation of COPD. Secondary to the above, the patient was admitted by Dwight Pinedo M.D. for further evaluation and treatment. For other history present illness, past medical history, family history, social history, review of systems, and admission physical examination please see the patient's history and physical examination and ER visit note in the patient's medical record. Hospital Course The following problems and their management were noted during the patient's hospitalization: 1. Exacerbation of COPD 2. Pneumonia 3. Generalized anxiety disorder 4. Gastroesophageal reflux 5. Insomnia Lab/Imaging Laboratory Tests 04/01 03/31 0740 1104 Blood Gas Sample Site LR Total CO2 (24.0 - 30.0 mmol/L) 31.7 ABG pH (7.35 - 7.45) 7.35 ABG pCO2 at Pt Temp (35 - 45 mmHg) 54.2 ABG pO2 at Pt Temp (60.0 - 80.0 mmHg) 84.1 ABG HCO3 (20.0 - 26.0 mmol/L) 30.1 ABG O2 Sat Calc/Pilar (95.1 - 100.0 %) 97.4 ABG Base Excess (-6.0 - -6.0 mmol/L) 3.9 ABG Reduced Hgb (%) 2.6 ABG Carboxyhemoglobin (0.5 - 1.5 %) 1.1 ABG Methemoglobin (0.4 - 1.5 %) 0.0 Derik Test YES Other Total Hgb (12.0 - 16.0 g/dL) 12.1 A-a O2 Gradient (7.0 - 14.0 mmHg) 54.3 Hgb O2 Saturation (95.0 - 100.0 %) 96.3 Respiration Rate (/MIN) 22 O2 Liters/Min (0 - 20 L/MIN) 2 Vent Mode NC FiO2 (20 - 101 %) 0.28 Hematology WBC (4.5 - 11.5 K/uL) 13.1 RBC (4.00 - 5.20 M/uL) 4.00 Hgb (12.0 - 16.0 gm/dL) 11.8 Hct (36.0 - 46.0 %) 35.9 MCV (80 - 100 fL) 90 MCH (26 - 34 pg) 30 RDW (11.6 - 14.8 %) 14.0 Neut % (Auto) (50 - 75 %) Pending Lymph % (Auto) (25 - 40 %) Pending [place] % (Auto) (3 - 14 %) Pending Band Neutrophils % (0 - 8 %) Pending Plt Count, EDTA (150 - 400 K/uL) 350 PUBS MCHC (31 - 37 g/dL) 33 Discharge Instructions/Meds For other recommendations regarding discharge diet, activity, followup, and discharge medications please see the patient's discharge instructions. Discharge condition: Fair, improved Greater than 30 min. was spent in the patient's discharge preparation including discharge interview and physical examination, progress note, discharge instructions, and discharge summary The patient was interviewed and examined on the day of discharge. E&M Codes Discharge: Inpt >30 min spent/[id number]
--- NOTE | 2016-04-01 07:57 | Discharge Summary ---
Discharge Summary Report Admit Date 03/29/16 Discharge Date 04/01/16 Admission Diagnosis E&M Codes Discharge: Inpt >30 min spent/21801 Discharge Diagnosis 1. Exacerbation of COPD 2. Pneumonia 3. Generalized anxiety disorder 4. Gastroesophageal reflux 5. Insomnia Brief History The patient is a 70-year-old white female with a significant past medical history of COPD-O2 dependent, hypertension, who presented to [facility] emergency department on the day of admission secondary to complaints of shortness of breath. [facility] emergency room evaluation was consistent with exacerbation of COPD. Secondary to the above, the patient was admitted by Dwight Pinedo M.D. for further evaluation and treatment. For other history present illness, past medical history, family history, social history, review of systems, and admission physical examination please see the patient's history and physical examination and ER visit note in the patient's medical record. Hospital Course The following problems and their management were noted during the patient's hospitalization: 1. Exacerbation of COPD 2. Pneumonia 3. Generalized anxiety disorder 4. Gastroesophageal reflux 5. Insomnia Lab/Imaging Laboratory Tests 04/01 03/31 0740 1104 Blood Gas Sample Site LR Total CO2 (24.0 - 30.0 mmol/L) 31.7 ABG pH (7.35 - 7.45) 7.35 ABG pCO2 at Pt Temp (35 - 45 mmHg) 54.2 ABG pO2 at Pt Temp (60.0 - 80.0 mmHg) 84.1 ABG HCO3 (20.0 - 26.0 mmol/L) 30.1 ABG O2 Sat Calc/Pilar (95.1 - 100.0 %) 97.4 ABG Base Excess (-6.0 - -6.0 mmol/L) 3.9 ABG Reduced Hgb (%) 2.6 ABG Carboxyhemoglobin (0.5 - 1.5 %) 1.1 ABG Methemoglobin (0.4 - 1.5 %) 0.0 Derik Test YES Other Total Hgb (12.0 - 16.0 g/dL) 12.1 A-a O2 Gradient (7.0 - 14.0 mmHg) 54.3 Hgb O2 Saturation (95.0 - 100.0 %) 96.3 Respiration Rate (/MIN) 22 O2 Liters/Min (0 - 20 L/MIN) 2 Vent Mode NC FiO2 (20 - 101 %) 0.28 Hematology WBC (4.5 - 11.5 K/uL) 13.1 RBC (4.00 - 5.20 M/uL) 4.00 Hgb (12.0 - 16.0 gm/dL) 11.8 Hct (36.0 - 46.0 %) 35.9 MCV (80 - 100 fL) 90 MCH (26 - 34 pg) 30 RDW (11.6 - 14.8 %) 14.0 Neut % (Auto) (50 - 75 %) Pending Lymph % (Auto) (25 - 40 %) Pending [place] % (Auto) (3 - 14 %) Pending Band Neutrophils % (0 - 8 %) Pending Plt Count, EDTA (150 - 400 K/uL) 350 PUBS MCHC (31 - 37 g/dL) 33 Discharge Instructions/Meds For other recommendations regarding discharge diet, activity, followup, and discharge medications please see the patient's discharge instructions. Discharge condition: Fair, improved Greater than 30 min. was spent in the patient's discharge preparation including discharge interview and physical examination, progress note, discharge instructions, and discharge summary The patient was interviewed and examined on the day of discharge. E&M Codes Discharge: Inpt >30 min spent/21983
[2016-04-01 11:55] VITALS: BP 151/85
[2016-04-01 14:30] VITALS: BP 158/86
--- NOTE | 2016-04-01 18:15 | Progress Note ---
Subjective General Note Date: April 01, 2016 Admission Date: March 29, 2016 Hospital Day: 4 PCP: Dr. Santos Status: Inpatient Advanced Directive: FULL CODE Room: 208 Brief History: The patient is a 70-year-old white female with a significant past medical history of COPD-O2 dependent, hypertension, who presented to [facility] emergency department on the day of admission secondary to complaints of shortness of breath. [facility] emergency room evaluation was consistent with exacerbation of COPD. Secondary to the above, the patient was admitted by Dwight Pinedo M.D. for further evaluation and treatment. For other history present illness, past medical history, family history, social history, review of systems, and admission physical examination please see the patient's history and physical examination and ER visit note in the patient's medical record. Subjective: The patient states that her status has worsened today. Persistent shortness of breath. Remains very anxious with anxiety component severe overnight. Wishes improved anxiety control. No other specific requests Patient requests: Improved anxiety control. Medications and Allergies Medications Current Medications Sig/Meenu Start time Last Medication Dose Route Stop Time Status Admin Cefuroxime Axetil 500 MG BID 04/01 2100 AC PO Prednisone 20 MG DIUB 04/01 1800 AC PO Alprazolam 1 MG Q8H 04/01 1200 AC 04/01 PO 1303 Guaifenesin/ 10 ML Q4H PRN 04/01 1115 AC 04/01 Dextromethorphan PO 1656 Citalopram 10 MG DAILY 03/30 0900 AC 04/01 Hydrobromide PO 0901 Albuterol/Ipratropium 3 ML RTQ6H 03/29 1999 AC 04/01 IN 1356 Fluticasone/ See Dose RTBID 03/29 1999 AC 04/01 Salmeterol Insts (1) IN 0829 Tramadol HCl 50 MG Q6H PRN 03/29 1745 AC 03/31 PO 1420 Zolpidem Tartrate 10 MG QHS PRN 03/29 1745 AC 04/01 PO 0145 Acetaminophen 650 MG Q6H PRN 03/29 1700 AC PO Albuterol Sulfate 2.5 MG RTQ3H PRN 03/29 1700 AC 03/31 IN 0552 Enoxaparin Sodium 40 MG DAILY 03/29 1700 AC 04/01 SC 0901 Ondansetron HCl 4 MG Q6H PRN 03/29 1700 AC IV Pantoprazole Sodium 40 MG DAILY@0600 03/29 1700 AC 04/01 Sesquihydrate PO 0614 Dose Instructions: (1)Fluticasone/Salmeterol: 1 CLICK Allergies Coded Allergies: TAPE - PLASTIC (03/29/16) Physical Exam Vital Signs / I&Os Vital Signs Date Time Temp Pulse Resp B/P Pulse O2 O2 Flow FiO2 Ox Delivery Rate 04/01 1430 98.1 106 26 158/86 91 Nasal 2.0 Cannula 04/01 1356 2.0 04/01 1155 99.0 95 18 151/85 94 Nasal 2.0 Cannula 04/01 0815 2.0 04/01 0800 Nasal 2.0 Cannula 04/01 0709 97.5 91 24 145/77 100 Nasal 3.0 Cannula 04/01 0156 98.1 102 24 163/81 95 Nasal Cannula 04/01 0100 Nasal Cannula 04/01 0028 2.0 03/31 2243 98.1 95 24 167/82 92 Nasal 2.0 Cannula 03/31 1947 1.0 03/31 1827 99.0 105 20 152/93 95 Nasal 1.0 Cannula I&O 04/01 0000 03/31 1600 03/31 0800 Intake Total 7480 122 8969 Output Total 600 200 400 Balance 1750 015 0741 General Appearance Alert, Oriented X3, Cooperative, No acute distress Lungs decreased air movement bilaterally-improved, minimal expiratory wheezes Cardiovascular Regular rate and rhythm, Normal S1 and S2 Abdomen Normal bowel sounds, Soft, No tenderness Extremities No cyanosis, No clubbing, No edema Neurological Grossly normal Psych/Mental Status Mental status normal, Mood normal, patient very anxious LAB Results Laboratory Tests 04/01 0740 Hematology WBC (4.5 - 11.5 K/uL) 13.1 RBC (4.00 - 5.20 M/uL) 4.00 Hgb (12.0 - 16.0 gm/dL) 11.8 Hct (36.0 - 46.0 %) 35.9 MCV (80 - 100 fL) 90 MCH (26 - 34 pg) 30 RDW (11.6 - 14.8 %) 14.0 Neut % (Auto) (50 - 75 %) 91 Lymph % (Auto) (25 - 40 %) 2 [place] % (Auto) (3 - 14 %) 4 Eos % (Auto) (0 - 4 %) 0 Baso % (Auto) (0 - 2 %) 0 Band Neutrophils % (0 - 8 %) 3 Metamyelocytes % (0 - 1 %) 0 Myelocytes (0 - 1 %) 0 Other Cell Type 0 Plt Count, EDTA (150 - 400 K/uL) 350 RBC Morphology NORMAL PUBS MCHC (31 - 37 g/dL) 33 Assessment and Plan Problem List 1. COPD exacerbation Status Chronic Onset Date Unknown Plan -Stable to improved -O2 requirement stable-improved since admission -Switch to oral corticosteroids, prednisone 20 mg by mouth twice a day -Continue DuoNeb, albuterol, Advair Diskus. -Plan discharge in a.m. with improved anxiety control 2. Pneumonia Status Acute Onset Date Unknown Plan -Improved -Procalcitonin normal, WBC improved -Patient switched to oral medications, Ceftin 500 mg by mouth twice a day 3. Anxiety Status Chronic Onset Date Unknown Plan -Patient with persistent severe anxiety -Panic attack today -Increase Xanax to 1 mg by mouth 3 times a day -Monitor overnight, if improved anxiety discharge in a.m. 4. Gastroesophageal reflux Status Chronic Onset Date Unknown Plan -Stable -No further evaluation 5. Insomnia Status Chronic Onset Date Unknown Plan -Patient with poor sleep last night -Ambien/Xanax -Monitor Current status: Fair, improved other than anxiety Anticipated discharge date: Anticipated discharge in a.m. Anticipated discharge placement: Home Patient care time: Time spent in chart review, patient interview, physical exam, CPOE, and care documentation: 35 minutes Visit to patient today: 2 Complexity of care: Moderate E&M Codes Rounding: Inpt-Moderate/86086
[2016-04-01 18:22] VITALS: BP 146/76
[2016-04-01 22:58] VITALS: BP 175/94
[2016-04-02 02:12] VITALS: BP 141/66
[2016-04-02 07:07] VITALS: BP 147/84
[2016-04-02] MEDS ORDERED: ALPRAZOLAM0.5 MG PO (09:36)
[2016-04-02] MEDS ORDERED: CEFUROXIME AXE250 MG PO (09:38)
[2016-04-02] MEDS ORDERED: PREDNISONE20 MG PO (09:41)
--- NOTE | 2016-04-02 09:43 | Provider's Discharge Care Plan ---
Problem, Goal, Plan Problem List 1. COPD exacerbation 2. Pneumonia 3. Anxiety
--- NOTE | 2016-04-02 09:43 | Provider's Discharge Care Plan ---
Problem, Goal, Plan Problem List 1. COPD exacerbation 2. Pneumonia 3. Anxiety
[2016-04-02 10:39] VITALS: BP 133/64
--- NOTE | 2016-04-02 11:14 | Discharge Summary ---
Discharge Summary Report Admit Date 03/29/16 Discharge Date 04/02/16 Admission Diagnosis COPD exacerbation Discharge Diagnosis COPD exacerbation Anxiety Brief History per Dr. Pinedo: 70-year-old white female with a significant past medical history of COPD-O2 dependent, hypertension, who presented to [facility] emergency department on the day of admission secondary to complaints of shortness of breath. [facility] emergency room evaluation was consistent with exacerbation of COPD. Secondary to the above, the patient was admitted by Dwight Pinedo M.D. for further evaluation and treatment. Hospital Course Patient was admitted for COPD exacerbation. She was placed on steroids, scheduled nebs, and azithromycin/rocephin. Her symptoms have greatly improved, and she will continue 2 more days of her steroid burst with 40mg PO prednisone daily. After this, she will resume her chronic prednisone daily. Her antibiotics were changed to ceftin, for which she will finish 3 more days. Of note, she had significant anxiety during her hospital stay, likely worsened by the increase in steroids. Her home xanax dose has been increased to 1mg PO TID PRN, and she was instructed to follow up with her PCP in 1 week for continued monitoring of this. Current Medications Sig/Meenu Start time Last Medication Dose Route Stop Time Status Admin Cefuroxime Axetil 500 MG BID 04/01 2100 AC 04/02 PO 0828 Prednisone 20 MG DIUB 04/01 1800 AC 04/02 PO 0655 Alprazolam 1 MG Q8H 04/01 1200 AC 04/02 PO 0655 Guaifenesin/ 10 ML Q4H PRN 04/01 1115 AC 04/01 Dextromethorphan PO 1656 Citalopram 10 MG DAILY 03/30 0900 AC 04/02 Hydrobromide PO 0828 Albuterol/Ipratropium 3 ML RTQ6H 03/29 1999 AC 04/02 IN 0756 Fluticasone/ See Dose RTBID 03/29 1999 AC 04/02 Salmeterol Insts (1) IN 075 Tramadol HCl 50 MG Q6H PRN 03/29 1745 AC 04/01 PO 1949 Zolpidem Tartrate 10 MG QHS PRN 03/29 1745 AC 04/01 PO 0145 Acetaminophen 650 MG Q6H PRN 03/29 1700 AC PO Albuterol Sulfate 2.5 MG RTQ3H PRN 03/29 1700 AC 03/31 IN 0552 Pantoprazole Sodium 40 MG DAILY@0600 03/29 1700 AC 04/02 Sesquihydrate PO 0655 Dose Instructions: (1)Fluticasone/Salmeterol: 1 CLICK General Appearance Alert, Oriented X3, No acute distress Lungs Clear to auscultation, Normal air movement Cardiovascular Regular Rate, Normal S1, Normal S2 Abdomen Normal bowel sounds, Soft, No tenderness Skin No Rashes Discharge Instructions/Meds Patient was instructed to continue the increased prednisone for the next 3 days, and then go back to her normal chronic dose. She will complete 3 more days of ceftin. She will follow up with her PCP in 1 week for follow up of her anxiety after increasing her PRN xanax. All patient's questions were answered to her satisfaction. She understands the importance of compliance with treatments and follow up. Discharge time: 45 min. E&M Codes Discharge: Inpt >30 min spent/80582
--- NOTE | 2016-04-04 07:33 | ED DISCHARGE INSTRUCTIONS ---
Patient: SUZAN CONRAD General Instructions [facility] VisitID: [id number] [address] [place] [address] 70y, F Registration Date/Time: 03/29/2016 Acute exacerbation of COPD. Bacterial pneumonia with hypoxemia. Vital signs recorded and reviewed; empiric antibiotics given in the ED. No respiratory failure or sepsis. (Electronically signed by Gwen Yancey MD 03/30/2016 9:22)
--- NOTE | 2016-04-04 07:33 | ED MED RECONCILIATION SUMMARY ---
Patient: SUZAN CONRAD Medication Reconciliation Report Located Within [facility] VisitID: [id number] [address] [place] [address] 70y, F Registration Date/Time: 03/29/2016 Weight: 79.3 kg Height/Length: 63 in. BMI: 31.0 ALLERGIES: No Known Drug Allergy The patient's Home Medications are listed below: THE FOLLOWING MEDICATIONS NEED TO BE RECONCILED: Advair Diskus Inhalation Advil Allergy & Congestion Oral Albuterol Sulfate Inhalation ALPRAZolam Oral Citalopram Hydrobromide Oral Hydrochlorothiazide Oral PredniSONE Oral Ranitidine HCl Oral Tramadol HCL Oral Zolpidem Tartrate Oral The source(s) of the original Home Medication information: Not obtained. The following Medications were given to the patient in the Emergency Department: SOLU-MEDROL [IVP] IVP 125 mg, administered: 03/29/2016 12:30:00 PM Magnesium Sulfate [IVP] IVP 2 gm, administered: 03/29/2016 12:32:00 PM Rocephin [IVPB] IVPB bolus 0, then 2 gm 100 mL/hr, administered: 03/29/2016 3:20:00 PM Zithromax [PO] PO 500 mg, administered: 03/29/2016 3:55:00 PM Duoneb [Neb Tx] Neb TX 1 unit dose, administered: 03/29/2016 3:40:00 PM The following Medications were prescribed to the patient: None.
--- NOTE | 2016-04-04 07:33 | ED MAR SUMMARY ---
..... Medication Administration Record [facility] [address] [place] [address] Patient: SUZAN CONRAD Visit ID: [id number] 70y, F Weight: 79.3 kg Height/Length: 63 in BMI: 31 ALLERGIES: No Known Drug Allergy Given 12:30 03/29/2016 Sandra Acevedo R.N. Medication Administered: SOLU-MEDROL [IVP] (METHYLPREDNISOLONE SODIUM SUCC), Dose: 125 mg IVP over 2 minute(s), Site: #1 right AC. Medication Ordered: Solu-MEDROL IV 125 mg (NOW). Given 12:32 03/29/2016 Sandra Acevedo R.N. Medication Administered: MAGNESIUM SULFATE [IVP] (MAGNESIUM SULFATE IN D5W), Dose: 2 gm IVP over 2 hour(s), Site: #1 right AC. Medication Ordered: Magnesium Sulfate IV 2 gm/50mL (HIGH ALERT MEDICATION, NOW). Start 15:20 03/29/2016 Ritika Trent R.N. Medication Administered: ROCEPHIN [IVPB] (CEFTRIAXONE SODIUM), Dose: 2 gm IVPB over 30 minute(s), Rate: 100 mL/hr, Dispensed: 50 mL bag, Site: #1 right AC. Medication Ordered: Rocephin IV 2 gm/50mL (NOW). Given 15:40 03/29/2016 Aristides Dimas, Medication Administered: DUONEB [NEB TX] (IPRATROPIUM-ALBUTEROL), Dose: 1 unit dose Nebulizer Neb TX. Medication Ordered: DuoNeb Neb Tx 1 unit dose (NOW). Given 15:55 03/29/2016 Ritika Trent R.N. Medication Administered: ZITHROMAX [PO], Dose: 500 mg PO. Medication Ordered: Zithromax PO 500 mg (NOW).
--- NOTE | 2016-04-04 07:33 | ED MED RECONCILIATION SUMMARY ---
Patient: SUZAN CONRAD Medication Reconciliation Report [facility] VisitID: [id number] [address] [place] [address] 70y, F Registration Date/Time: 03/29/2016 Weight: 79.3 kg Height/Length: 63 in. BMI: 31.0 ALLERGIES: No Known Drug Allergy The patient's Home Medications are listed below: THE FOLLOWING MEDICATIONS NEED TO BE RECONCILED: Advair Diskus Inhalation Advil Allergy & Congestion Oral Albuterol Sulfate Inhalation ALPRAZolam Oral Citalopram Hydrobromide Oral Hydrochlorothiazide Oral PredniSONE Oral Ranitidine HCl Oral Tramadol HCL Oral Zolpidem Tartrate Oral The source(s) of the original Home Medication information: Not obtained. The following Medications were given to the patient in the Emergency Department: SOLU-MEDROL [IVP] IVP 125 mg, administered: 03/29/2016 12:30:00 PM Magnesium Sulfate [IVP] IVP 2 gm, administered: 03/29/2016 12:32:00 PM Rocephin [IVPB] IVPB bolus 0, then 2 gm 100 mL/hr, administered: 03/29/2016 3:20:00 PM Zithromax [PO] PO 500 mg, administered: 03/29/2016 3:55:00 PM Duoneb [Neb Tx] Neb TX 1 unit dose, administered: 03/29/2016 3:40:00 PM The following Medications were prescribed to the patient: None.
--- NOTE | 2016-04-04 07:33 | ED MAR SUMMARY ---
..... Medication Administration Record [facility] [address] [place] [address] Patient: SUZAN CONRAD Visit ID: [id number] 70y, F Weight: 79.3 kg Height/Length: 63 in BMI: 31 ALLERGIES: No Known Drug Allergy Given 12:30 03/29/2016 Sandra Acevedo R.N. Medication Administered: SOLU-MEDROL [IVP] (METHYLPREDNISOLONE SODIUM SUCC), Dose: 125 mg IVP over 2 minute(s), Site: #1 right AC. Medication Ordered: Solu-MEDROL IV 125 mg (NOW). Given 12:32 03/29/2016 Sandra Acevedo R.N. Medication Administered: MAGNESIUM SULFATE [IVP] (MAGNESIUM SULFATE IN D5W), Dose: 2 gm IVP over 2 hour(s), Site: #1 right AC. Medication Ordered: Magnesium Sulfate IV 2 gm/50mL (HIGH ALERT MEDICATION, NOW). Start 15:20 03/29/2016 Ritika Trent R.N. Medication Administered: ROCEPHIN [IVPB] (CEFTRIAXONE SODIUM), Dose: 2 gm IVPB over 30 minute(s), Rate: 100 mL/hr, Dispensed: 50 mL bag, Site: #1 right AC. Medication Ordered: Rocephin IV 2 gm/50mL (NOW). Given 15:40 03/29/2016 Aristides Dimas, Medication Administered: DUONEB [NEB TX] (IPRATROPIUM-ALBUTEROL), Dose: 1 unit dose Nebulizer Neb TX. Medication Ordered: DuoNeb Neb Tx 1 unit dose (NOW). Given 15:55 03/29/2016 Ritika Trent R.N. Medication Administered: ZITHROMAX [PO], Dose: 500 mg PO. Medication Ordered: Zithromax PO 500 mg (NOW).
--- NOTE | 2016-04-04 07:33 | ED DISCHARGE INSTRUCTIONS ---
Patient: SUZAN CONRAD General Instructions [facility] VisitID: [id number] [address] [place] [address] 70y, F Registration Date/Time: 03/29/2016 Acute exacerbation of COPD. Bacterial pneumonia with hypoxemia. Vital signs recorded and reviewed; empiric antibiotics given in the ED. No respiratory failure or sepsis. (Electronically signed by Gwen Yancey MD 03/30/2016 9:22)
== END 2016-04-02 14:25 | disposition home or self-care (01) | DRG 190 ==
LOC: ED SRH 11:35 → TRANS SRH 14:55 → ACUTE2 SRH 16:54
PROVIDERS: ADMIT Emergency Medicine
DX: J44.0 Chronic obstructive pulmonary disease with (acute) lower respiratory infection (principal); J18.9 Pneumonia, unspecified organism; J44.1 Chronic obstructive pulmonary disease with (acute) exacerbation; R09.02 Hypoxemia; I10 Essential (primary) hypertension; F41.1 Generalized anxiety disorder; G47.00 Insomnia, unspecified; Z79.52 Long term (current) use of systemic steroids; Z99.81 Dependence on supplemental oxygen
CPT/HCPCS: 90047; 90074; 90100; 90127; 90309; 91295; 91320; 91400; 92720; 93004; 95059; 95061